=== PATIENT | female | born 1930 | race Caucasian/White ===

== ENCOUNTER 2016-09-23 13:09 | Emergency (ER) | payer MEDICARE ==
--- NOTE | 2016-09-23 14:48 | RAD ---
Exam: Complete right shoulder COMPARISON: 09/21/2015, 03/22/2014 INDICATION: Fall 2 weeks ago. FINDINGS: AP, Grashey and transscapular y views of the right shoulder were obtained. 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 Alignment is normal. Irregularity at the level of the humeral neck laterally is noted but unchanged. There is also a tiny ossified or calcific density which projects inferior to the glenoid which is also stable. No acute displaced fracture is identified. There is no pericomponent lucency. Degenerative changes are again appreciated within right acromioclavicular joint. The visualized right hemithorax is unremarkable. IMPRESSION: No acute osseous abnormality in the right shoulder.
--- NOTE | 2016-09-23 14:49 | RAD ---
Exam: Two-view right elbow COMPARISON: None INDICATION: Fall 2 weeks ago. FINDINGS: AP and lateral views of the right elbow were obtained. There is no significant joint effusion. Alignment is normal. No fracture is identified. IMPRESSION: No acute osseous abnormality in the right elbow.
== END 2016-09-23 15:31 | disposition home or self-care (01) ==
LOC: ED 13:09
DX: M25.521 Pain in right elbow (principal); I10 Essential (primary) hypertension; E78.5 Hyperlipidemia, unspecified; E78.00 Pure hypercholesterolemia, unspecified; Z79.02 Long term (current) use of antithrombotics/antiplatelets; W22.8XXA Striking against or struck by other objects, initial encounter; Y92.810 Car as the place of occurrence of the external cause